=== PATIENT | male | born 1950 | race Caucasian/White ===

== ENCOUNTER 2023-10-15 13:17 | Inpatient (IN) ==
--- NOTE | 2023-10-15 13:25 | Emergency Department Note ---
Impression & Plan Cellulitis of left lower leg, Leg swelling, CKD (chronic kidney disease) ED Provider Note NAME: JAMES ROMAON AGE: 73 SEX: M : 1950 ARRIVES VIA: Walk-In INFORMANT: Patient, ED PROVIDER(S): Yonatan Regan MD CHIEF COMPLAINT: Left lower extremity swelling MEDICAL DECISION MAKING: Patient presents due to concern for left lower extremity swelling and associated cellulitis. The patient was referred possible osteomyelitis from the urgent care. The patient does not have any obvious deep wounds from this blister to the left foot. The patient does have prior history of popliteal bypass. Dopplerable pulses were obtained. The patient is warm no signs of obvious limb ischemia not cold or decrease in temperature compared to the right. Patient does have associated swelling redness and warmth noted to the left lower extremity. Patient is anticoagulated but given the patient's recent swelling and associated travel DVT ultrasound was obtained along with blood work and a screening chest x-ray. Patient was ordered IV vancomycin and Rocephin. Blood work shows a normal white count hemoglobin and platelet count. The patient's kidney function with a creat of 1.75. No priors for comparison. Potassium 3.4. LFTs unremarkable dig level low at 0.7. Given the more sensitive nature of the patient's cellulitis do believe the patient would benefit from IV antibiotics and treatment. Patient was admitted to the medicine service by Dr. Wiley. Discussion w/ other healthcare providers: Dr. Wiley [facility] medicine service Prior /Outside records reviewed: None Differential diagnosis: Cellulitis, abscess, MRSA infection, DVT, necrotizing fasciitis, dermatitis, drug eruption, allergic reaction, as well as other pathologies were considered. Diagnostics, as interpreted by me: ECG: A-fib, rate of 85, wide QRS, right bundle branch block pattern, normal axis no ST elevations. Cardiac monitoring: An order was placed for continuous cardiac monitoring. The monitor shows a rate of 85 with irregularly irregular rhythm. Patient was placed on pulse oximetry Medical decision rules: None Imaging studies: I informally interpreted the patient's chest x-ray with cardiomegaly no obvious pneumonia with formal report to follow. HPI: Patient presents as a referral for [facility] due to concern for left lower extremity swelling and associated redness. The patient reports that he did have some left toe pain that he noticed over the weekend and was participating in a fishing tournament. The patient noticed a blister after taking off his shoe she has since ruptured. The patient reportedly was referred here for further evaluation and treatment possible osteomyelitis. Patient denies any chest pains or shortness of breath. Patient does have a history of A-fib is on Eliquis and does have a prior history of bilateral popliteal bypass but did have 2 bypasses completed of the left lower extremity. 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 Patient has noticed some increasing swelling and redness to the left lower extremity. Patient states that he has woken up perspiring last night as well as the night over the weekend. The patient is from the [facility] area but does spend time down in [place] and recently returned from [place] and is staying with a friend locally in [place]. PAST MEDICAL HISTORY: A-fib, hypertension PAST SURGICAL HISTORY: Left lower extremity popliteal bypass x 2, right lower extremity popliteal bypass x 1, left inguinal hernia surgery SOCIAL HISTORY: Speaks Maldivian. Primarily resides in [place]. HOME MEDICATIONS: See Below ALLERGIES: See Below VITALS: See Below PHYSICAL EXAMINATION: GENERAL: NAD, non-toxic. EYE EXAM: Normal conjunctiva. PERRL, no anisocoria and EOM's grossly intact w/o pain. OROPHARYNX: Moist mucus membranes, grossly normal dentition. NECK: Trachea midline, no stridor. LUNGS: Clear to auscultation. Normal chest wall mechanics. HEART: Irregularly irregular, no MRG. ABDOMEN: Abdomen soft, non-tender, no masses, no rebound or guarding. BACK: No CVA TTP. SKIN: No rashes and no bruising. UPPER EXTREMITIES: Upper extremities are grossly normal. LOWER EXTREMITIES: Left lower extremity swelling with associated erythema overlying venous stasis changes with the erythema noted just distal to the left knee to the proximal ankle, no obvious joint swelling to the knee or ankle, calor noted, sensate, likely prior ruptured blister of the left great toe does not obviously probe to bone. NEURO EXAM: A&O x3, cranial nerves II-XII grossly intact, normal speech, moves all 4 extremities. Past Med/Surg History Problem List Surgical History History of hernia repair Social History Smoking Status: Former smoker Smoking End Date: Stopped 36 years ago; Hx Alcohol Use: Yes Alcohol Intake Frequency: Monthly or Less Hx Substance Use: No Feels Safe at Home: Yes Results & Data (ED) Vital Signs Vital Signs - 24 hr 10/15/23 13:18 Temperature 36.5 C Temperature Source Temporal Artery Scan Pulse Rate 102 H Pulse Rhythm Regular Pulse Strength Normal Respiratory Rate 20 Respiratory Effort / Characteristics Non-Labored Spontaneous Respiratory Depth Normal Blood Pressure 129/89 Blood Pressure Mean 102 Blood Pressure Position Sitting Pulse Oximetry 96 Oxygen Delivery Method Room Air Sepsis Recent Fever Within 48 Hours No Sepsis New/Unexplained Change in Mental Status No Sepsis Action Taken by Nursing No Action Required Home Medications Current Medication List: was personally reviewed by me Laboratory Data Attestation: I reviewed the patient's lab results. 10/15/23 14:11 10/15/23 14:11 Lab Results 10/15/23 Range/Units 14:11 WBC 8.87 (4.8-10.8) K/ul RBC 5.14 (4.70-6.10) M/uL Hgb 15.1 (14.0-18.0) g/dl Hct 45.8 (42.0-52.0) % MCV 89.1 (80.0-100.0) fL MCH 29.4 (25.0-34.0) pg MCHC 33.0 (32.0-36.0) g/dL RDW Std Deviation 52.7 H (36.4-46.3) fL RDW Coeff of Magda 15.9 H (11.5-14.5) % Plt Count 166 (130-400) K/uL MPV 9.4 (9.4-12.4) fL Immature Gran % (Auto) 0.5 % Neut % (Auto) 69.5 % Lymph % (Auto) 13.2 % Harding % (Auto) 13.3 % Eos % (Auto) 2.9 % Baso % (Auto) 0.6 % Neut # (Auto) 6.17 (1.40-6.50) K/uL Lymph # (Auto) 1.17 L (1.20-3.40) K/uL Harding # (Auto) 1.18 H (0.11-0.59) K/uL Eos # (Auto) 0.26 (0.00-0.50) K/uL Baso # (Auto) 0.05 (0.00-0.20) K/uL Immature Gran # (Auto) 0.04 (0.01-0.20) K/uL Sodium 137 (136-145) mmol/L Potassium 3.4 L (3.5-5.1) mmol/L Chloride 99 (98-107) mmol/L Carbon Dioxide 32 (21-32) mmol/L Anion Gap 6 (3-11) BUN 20 (6-23) mg/dl Creatinine 1.75 H (0.6-1.4) mg/dl Est Cr Clr Drug Dosing 50.7 ml/min Est GFR ( Amer) 43.8 ml/min Est GFR (Non-Af Amer) 37.8 ml/min BUN/Creatinine Ratio 11.4 (10-20) Glucose 99 (70-99(Fasting)) mg/dl Calcium 9.1 (8.6-10.3) mg/dl Total Bilirubin 1.2 H (0.2-1.0) mg/dl AST 21 (13-39) U/L ALT 24 (7-52) U/L Alkaline Phosphatase 121 H (34-104) U/L Total Protein 7.2 (6.0-8.3) gm/dl Albumin 3.7 (3.4-5.0) gm/dl Globulin 3.5 (2.5-4.0) gm/dl Albumin/Globulin Ratio 1.1 (0.9-2) Procalcitonin 0.13 (0-0.5) ng/ml TSH 2.500 (0.300-4.500) uIu/ml Digoxin 0.7 L (0.8-2.0) ng/ml Administered Medications Vancomycin HCl 2,750 mg/ (Sodium Chloride) 555 mls @ 200 mls/hr IV NOW ONE Stop: 10/15/23 16:37 Last Admin: 10/15/23 15:36 Dose: 200 mls/hr Documented By: CHITOK Discontinued Medications Ceftriaxone Sodium (Rocephin) 2,000 mg in 50 mls @ 100 mls/hr IV NOW STA Stop: 10/15/23 14:20 Last Infusion: 10/15/23 15:17 Dose: Infused Documented By: Admin: 10/15/23 14:47 Dose: 100 mls/hr Documented By: STEWART Imaging Data Radiologist's Impression: Chest X-Ray 10/15/23 13:49 XR chest 1V portable CLINICAL HISTORY: weakness TECHNIQUE: Single frontal radiograph of the chest was obtained. Comparison: None available at the time of this dictation. FINDINGS: No lines and tubes are seen. Cardiomegaly is noted. Reticular interstitial opacities are seen. No evidence of pleural effusion or pneumothorax. IMPRESSION: No acute chest disease. Cardiomegaly is noted. ACT 112: Negative or not required by law. Electronically signed by: Ivan Bills M.D. 10/15/2023 2:49 PM Venous Doppler Study 10/15/23 14:26 LEFT LOWER EXTREMITY VENOUS DOPPLER HISTORY: Acute pain and swelling of the left lower leg swelling, redness, travel COMPARISON STUDY: None. FINDINGS: There is normal compressibility, flow, and augmentation within the left lower extremity deep venous system. Left internal jugular lymph nodes measure up to 2.5 x 1.0 x 1.8 cm with thin cortices and central fatty ernie, likely benign. Subcutaneous edema. IMPRESSION: No DVT within the left lower extremity. ACT 112: Negative or not required by law. Electronically signed by: Ganesh Mariano M.D. 10/15/2023 3:44 PM Discharge Plan Visit Data Chief Complaint: Foot Injury/Pain Stated Complaint: LT FOOT CELLULITIS ED Provider: Yonatan Regan Discharge Problem: Cellulitis of left lower leg, Leg swelling, CKD (chronic kidney disease) Forms Stand Alone Forms: [facility] Referrals Referrals: PCP,NO [Primary Care Provider] - Discharge Problem: CKD (chronic kidney disease) Qualifiers: Chronic kidney disease stage: unspecified stage Qualified Code(s): N18.9 - Chronic kidney disease, unspecified
[2023-10-15] MEDS ORDERED: VANCOMYCIN CONSULT ACTIVE PRN (13:51)
[2023-10-15 14:37] LABS: Basophils # (auto) 0.05 K/uL (0.00-0.20); Basophils % (auto) 0.6 %; Eosinophils # (auto) 0.26 K/uL (0.00-0.50); Eosinophils % (auto) 2.9 %; Hematocrit (blood only) 45.8 % (42.0-52.0); Hemoglobin 15.1 g/dl (14.0-18.0); Immature Granulocytes # (auto) 0.04 K/uL (0.01-0.20); Immature Granulocytes % (auto) 0.5 %; Lymphocytes # (auto) 1.17 K/uL (1.20-3.40); Lymphocytes % (auto) 13.2 %; Mean Corpuscular Hemoglobin 29.4 pg (25.0-34.0); Mean Corpuscular Volume 89.1 fL (80.0-100.0); Mean Platelet Volume 9.4 fL (9.4-12.4); Monocytes # (auto) 1.18 K/uL (0.11-0.59); Monocytes % (auto) 13.3 %; Neutrophils # (auto) 6.17 K/uL (1.40-6.50); Neutrophils % (auto) 69.5 %; Platelet Count 166 K/uL (130-400); RDW Coefficient of Variation 15.9 % (11.5-14.5); RDW Standard Deviation 52.7 fL (36.4-46.3); Red Blood Count 5.14 M/uL (4.70-6.10); White Blood Count 8.87 K/ul (4.8-10.8)
[2023-10-15] MEDS: cefTRIAXone SODIUM 2,000 MG/50 ML BAG IV STA (14:47)
--- NOTE | 2023-10-15 14:51 | XRay Report ---
XR chest 1V portable CLINICAL HISTORY: weakness TECHNIQUE: Single frontal radiograph of the chest was obtained. Comparison: None available at the time of this dictation. FINDINGS: No lines and tubes are seen. Cardiomegaly is noted. Reticular interstitial opacities are seen. No jordyn dence of pleural effusion or pneumothorax. IMPRESSION: No acute chest disease. Cardiomegaly is noted. ACT 112: Negative or not required by law. Electronically signed by: Ivan Bills M.D. 10/15/2023 2:49 PM
[2023-10-15 14:52] LABS: Albumin Globulin Ratio 1.1 (0.9-2); Albumin Level 3.7 gm/dl (3.4-5.0); BUN Creatinine Ratio 11.4 (10-20); Bilirubin,Total 1.2 mg/dl (0.2-1.0); Calcium 9.1 mg/dl (8.6-10.3); Creatinine Clr Calc Pharmacy 50.7 ml/min; Est GFR (African American) 43.8 ml/min; Est GFR (Non-African American) 37.8 ml/min; Globulin 3.5 gm/dl (2.5-4.0); Potassium 3.4 mmol/L (3.5-5.1); Total Protein 7.2 gm/dl (6.0-8.3)
[2023-10-15 15:07] LABS: Thyroid Stimulating Hormone 2.5 uIu/ml (0.300-4.500)
--- NOTE | 2023-10-15 15:35 | History & Physical Report ---
Date of Service October 15, 2023 Assessment & Plan (1) Cellulitis of left leg: (2) PVD (peripheral vascular disease): Plan: Patient is 73 year old male with PMH atrial fibrillation on digoxin, anticoagulated on Xarelto, PVD s/p left popliteal bypass (approximately 40 years ago) presented to ER with c/o left leg redness x 4 days. Blister noted to left great toe last week after fishing in [place] keys In ER afebrile, P: 102, R: 20, BP 129/89, 96% on room air. No leukocytosis In ER given Rocephin 2 g, vancomycin Venous Doppler negative for DVT Blood cultures Start Zosyn, daptomycin Arterial Doppler pending MRI foot to r/o osteomyelitis Podiatry consult for possible need for debridement of great toe blister region Patient requests ID consult CBC in am (3) MINDY (acute kidney injury): Plan: Possible MINDY vs CKD BUN: 20, Cr: 1.75. Unknown baseline. Patient states will bring in recent outpatient lab results tomorrow for review IVF Will hold Lasix for now Monitor renal functions (4) Atrial fibrillation: Plan: History atrial fibrillation anticoagulated on Xarelto Current atrial fibrillation rate controlled Digoxin lab: 0.7 Continue digoxin, nebivolol Will hold Xarelto in case of possible procedure (5) Hypokalemia: Plan: K: 3.4. Magnesium: 2.4 Replace potassium and monitor DVT Prophylaxis SCD for now Admit med tele Full Code as per discussion with pt Pt was seen and care coordinated with Dr Wiley. See addendum I spent a total of 75 minutes reviewing notes, outpatient records, labs, medication, coordinating, documenting and providing care for this patient excluding time spent in the performance of separately billed services. History of Present Illness Chief Complaint: Leg redness Primary Care Provider: NO PCP Patient is 73 year old male with PMH atrial fibrillation on digoxin, anticoagulated on Xarelto, PVD presented to ER with c/o left leg redness x 4 days. Patient states history popliteal bypass surgery to left leg approximately 40 years ago and has chronic discoloration of purple/brown coloration to bilateral lower legs. Patient reports recently diagnosed with neuropathy. Started with blister to left toe great toe plantar surface and medial surface 4 days ago. He was out fishing all day in [place]. He states started soaking foot in Epsom salts. He reports noting clear seeping discharge from left toe after walking past couple of days. 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 His Cardiology, dermatology and PCP are in [place] and reports just saw them in one month ago and was told labs "looked good". Patient states chills 4 days ago. Hasn't noticed fever. He reports wears compression socks regularly however he has noticed increased swelling to left lower leg and started with erythema to lower leg area. Denies history MRSA. Denies diaphoresis, N/V/D/C, CHAMORRO, dizziness, CP, SOB, orthopnea, palpitations, cough, so re throat, rhinorrhea, abdominal pain, increased paresthesias, weakness, extremity weakness, other rashes, urinary symptoms. Allergies Allergy/AdvReac Type Severity Reaction Status Date / Time No Known Allergies Allergy Verified 10/15/23 16:24 Home Medications Medication Instructions Recorded Confirmed Type digoxin 250 mcg (0.25 mg) tablet 250 mcg PO DAILY 10/15/23 10/15/23 History furosemide 40 mg tablet 40 mg PO DAILY 10/15/23 10/15/23 History multivitamin 1 tab PO DAILY 10/15/23 10/15/23 History nebivolol 10 mg tablet 10 mg PO DAILY 10/15/23 10/15/23 History pantoprazole 40 mg tablet,delayed 40 mg PO DAILY 10/15/23 10/15/23 History release rivaroxaban 20 mg tablet (Xarelto) 20 mg PO DAILY 10/15/23 10/15/23 History Past Med/Surg History Problem List (Updated 10/15/23 @ 16:34 by Jada Hodge PA-C) Hypokalemia MINDY (acute kidney injury) Cellulitis of left leg PVD (peripheral vascular disease) Atrial fibrillation Surgical History (Updated 10/15/23 @ 16:08 by Jada Hodge PA-C) History of vascular surgery history popliteal bypass LLE History of hernia repair Family History (Updated 10/15/23 @ 16:31 by Jada Hodge PA-C) Father Heart disease Stroke Social History Smoking Status: Former smoker Smoking End Date: Stopped 36 years ago; Hx Alcohol Use: Yes Alcohol Intake Frequency: Monthly or Less Hx Substance Use: No Feels Safe at Home: Yes Review of Systems Review of Systems: All systems reviewed & are unremarkable except as noted in HPI & below Physical Exam Physical Exam: PE per Dr Wiley Results & Data Results & Data Vital Signs (Past 12 Hours) Vital Signs Temp Pulse Resp BP Pulse Ox O2 Del Method 10/15/23 13:18 36.5 C 102 H 20 129/89 96 Room Air Laboratory Results Short CBC 10/15/23 Range/Units 14:11 WBC 8.87 (4.8-10.8) K/ul Hgb 15.1 (14.0-18.0) g/dl Hct 45.8 (42.0-52.0) % Plt Count 166 (130-400) K/uL BMP 10/15/23 14:11 Sodium 137 Potassium 3.4 L Chloride 99 Carbon Dioxide 32 BUN 20 Creatinine 1.75 H Glucose 99 Calcium 9.1 Liver Function 10/15/23 Range/Units 14:11 Total Bilirubin 1.2 H (0.2-1.0) mg/dl AST 21 (13-39) U/L ALT 24 (7-52) U/L Alkaline Phosphatase 121 H (34-104) U/L Albumin 3.7 (3.4-5.0) gm/dl Diagnostic Findings Chest X-Ray 10/15/23 13:49 XR chest 1V portable CLINICAL HISTORY: weakness TECHNIQUE: Single frontal radiograph of the chest was obtained. Comparison: None available at the time of this dictation. FINDINGS: No lines and tubes are seen. Cardiomegaly is noted. Reticular interstitial opacities are seen. No evidence of pleural effusion or pneumothorax. IMPRESSION: No acute chest disease. Cardiomegaly is noted. ACT 112: Negative or not required by law. Electronically signed by: Ivan Bills M.D. 10/15/2023 2:49 PM Venous Doppler Study 10/15/23 14:26 LEFT LOWER EXTREMITY VENOUS DOPPLER HISTORY: Acute pain and swelling of the left lower leg swelling, redness, travel COMPARISON STUDY: None. FINDINGS: There is normal compressibility, flow, and augmentation within the left lower extremity deep venous system. Left internal jugular lymph nodes measure up to 2.5 x 1.0 x 1.8 cm with thin cortices and central fatty ernie, likely benign. Subcutaneous edema. IMPRESSION: No DVT within the left lower extremity. ACT 112: Negative or not required by law. Electronically signed by: Ganesh Mariano M.D. 10/15/2023 3:44 PM Supervising Physician Co-Signing Physician Notes Patient is a 73-year-old male with past medical history of A-fib on a nticoagulation, history of popliteal bypass surgery on the left leg 40 years ago presented with progressive redness on the left leg. Patient noticed a blister on the great toe of his left foot which burst; he subsequently developed redness gradually progressing below his knee. He denies fever or chills; no previous history of lower extremity wounds. On physical examination; Constitutional: Alert oriented x 3; not in distress. Respiratory: normal respiratory effort, lungs clear to auscultation, no wheeze, rales, rhonchi. Normal insp/exp effort, no accessory muscle use Cardiovascular: RRR, no murmur, no edema Vessels: no JVD or carotid bruit Chest: normal inspection of chest Abdomen: normal bowel sounds, soft, nontender, no hepatosplenomegaly Musculoskeletal: Great toe on left foot has a skin breakage with minimal serous discharge. Redness tracking up to the leg below his knee. No effusion in the ankle or at knee. Dorsalis pedis palpable Neurologic: PERRL, EOMI, accommodation nl, no face palsy, no dysarthria CN's II- XI intact bilaterally and moves all extremities Psychiatric: A+Ox3, euthymic affect Assessment/plan Left leg cellulitis Left great toe wound IV daptomycin, Zosyn MRI foot Arterial Doppler Podiatry evaluation for debridement Possible MINDY Creatinine of 1.78; baseline unknown. Patient will bring his recent lab work to the hospital tomorrow IV fluids Avoid nephrotoxic agent Hold Lasix A-fib-will hold Xarelto; continue nebivolol, digoxin I have reviewed the advanced practitioner's documentation, and I agree with, and take responsibility for the plan of care I spent a total of 35 minutes coordinating, documenting, and providing care for this patient excluding time spent in the performance of separately billed services. All of the aforementioned completed while collaborating with the assigned advanced practitioner for a full treatment plan
[2023-10-15] MEDS: VANCOMYCIN HCL 2,750 MG in SODIUM CHLORIDE 0.9% 500 ML IV ONE (15:36)
--- NOTE | 2023-10-15 15:47 | Ultrasound Report ---
LEFT LOWER EXTREMITY VENOUS DOPPLER HISTORY: Acute pain and swelling of the left lower leg swelling, redness, travel COMPARISON STUDY: None. FINDINGS: There is normal compressibility, flow, and augmentation within the left lower extremity alex p venous system. Left internal jugular lymph nodes measure up to 2.5 x 1.0 x 1.8 cm with thin cortice s and central fatty ernie, likely benign. Subcutaneous edema. IMPRESSION: No DVT within the left lower extremity. ACT 112: Negative or not required by law. Electronically signed by: Ganesh Mariano M.D. 10/15/2023 3:44 PM
[2023-10-15] MEDS ORDERED: Patient's ALLERGY Info needs ENTERED STA (16:02)
[2023-10-15 16:17] LABS: Magnesium 2.4 mg/dl (1.7-2.4)
[2023-10-15] MEDS: POTASSIUM CHLORIDE CRTAB 20 MEQ TABCR PO ONE (17:35)
[2023-10-15] MEDS: SODIUM CHLORIDE 0.9% 1,000 ML IV SCH (17:35)
[2023-10-15] MEDS ORDERED: ONDANSETRON INJ 2 MG/ML 2 ML VIAL IV PRN (17:48)
[2023-10-15] MEDS ORDERED: POLYETHYLENE (MIRALAX) 17 GM PACK PO PRN (17:48)
--- NOTE | 2023-10-15 18:13 | Ultrasound Report ---
US arterial duplex left lower extremity CLINICAL HISTORY: History of peripheral vascular disease. Left lower extremity pain. COMPARISON STUDY: None. FINDINGS: Normal velocities and biphasic to triphasic waveforms seen within the left common femoral a nd proximal superficial femoral arteries. Monophasic low velocity waveforms seen within the mid left superficial femoral artery. The distal left superficial femoral artery, agdaagux popliteal artery, rigoberto rowan artery, and proximal to mid posterior tibial arteries are occluded. Monophasic low velocity wave forms seen within the left anterior tibial artery, distal posterior tibial artery, and dorsalis pedis artery. There is a bypass graft traversing the popliteal artery which is also occluded. There is als o a patent collateral vessel which feeds into the distal posterior tibial artery. IMPRESSION: 1. The distal left superficial femoral artery, agdaagux popliteal artery, peroneal artery, and proximal to mid posterior tibial arteries are occluded. 2. There is also a bypass graft traversing the left popliteal artery which is also occluded. ACT 112: Negative or not required by law. Electronically signed by: Navdeep Scott M.D. 10/15/2023 6:11 PM
[2023-10-15] MEDS: DAPTOmycin 375 MG in SYRINGE 0 ML IV SCH (18:24)
--- NOTE | 2023-10-15 20:21 | Electrocardiogram Report ---
Test Reason : Blood Pressure : / mmHG Vent. Rate : 085 BPM Atrial Rate : 000 BPM P-R Int : 000 ms QRS Dur : 178 ms QT Int : 446 ms P-R-T Axes : 000 005 -14 degrees QTc Int : 530 ms Atrial fibrillation with premature ventricular or aberrantly conducted complexes Right bundle branch block Abnormal ECG No previous ECGs available Confirmed by Jono Banegas ([id number]) on 10/15/2023 8:21:26 PM Referred By: REFERRED SELF Confirmed By:Jono Banegas
[2023-10-15] MEDS: PIPER/TAZO 4.5g in D5W MINI-B 100 ML IV ONE (20:55)
[2023-10-15] MEDS: ACETAMINOPHEN 325 MG TAB PO PRN (21:06)
--- NOTE | 2023-10-16 00:24 | Magnetic Resonance Report ---
Exam(s): MRI LEFT FOOT Without Contrast EXAM: MR Left Lower Extremity Without Intravenous Contrast, Foot CLINICAL HISTORY: Reason for exam: R/O osteomyelitis. TECHNIQUE: Multiplanar magnetic resonance images of the left foot without intravenous contrast. COMPARISON: No relevant prior studies available. FINDINGS: There is no evidence of acute fracture or dislocation. There are mild, age-related polyarticular degenerative changes, most conspicuous at the first MTP joint. A bipartite medial sesamoid at the first MTP joint is incidentally noted. Plantar plates appear intact. There is trace intermetatarsal bursitis in the third intermetatarsal space. There are no significant joint effusions. Visualized tendons appear intact. Intrinsic muscles of the foot appear normal. There is marked subcutaneous edema and swelling about the ankle and along the dorsum of the foot. There is a partially imaged subchondral cyst at the lateral talar dome, likely owing to overlying chondral loss. There is STIR hyperintense marrow edema within the terminal tuft of the first distal phalanx. T1-weighted images demonstrate a linear band of hypointensity (series 10, image 15; series 7, image 10). There is no confluent T1 marrow signal hypointensity in this location. No compelling evidence of osteomyelitis is identified within the foot. IMPRESSION: 1. Bone marrow edema in the terminal tuft of the first distal phalanx. Linear T1 hypointense band opacity in this region. Findings raise the possibility of a nondisplaced fracture. Correlate for history of trauma. Alternatively, consider reactive marrow edema for this appearance. There is no compelling evidence of acute osteomyelitis. 2. Diffuse subcutaneous edema and/or cellulitis. Electronically signed by: Sydnie Pederson M.D. 10/16/23 00:23 AM
[2023-10-16] MEDS: PIPERACILLIN/TAZOBACTAM 4.5 GM in DEXTROSE 5% MINI-B 100 ML IV SCH (01:55)
[2023-10-16 06:42] LABS: Hematocrit (blood only) 44.6 % (42.0-52.0); Hemoglobin 14.3 g/dl (14.0-18.0); Mean Corpuscular Hemoglobin 29.7 pg (25.0-34.0); Mean Corpuscular Hgb Conc 32.1 g/dL (32.0-36.0); Mean Corpuscular Volume 92.5 fL (80.0-100.0); Mean Platelet Volume 8.9 fL (9.4-12.4); Platelet Count 147 K/uL (130-400); RDW Standard Deviation 54.9 fL (36.4-46.3); Red Blood Count 4.82 M/uL (4.70-6.10); White Blood Count 7.84 K/ul (4.8-10.8)
[2023-10-16 07:01] LABS: Albumin Globulin Ratio 1.1 (0.9-2); Albumin Level 3.2 gm/dl (3.4-5.0); BUN Creatinine Ratio 10.8 (10-20); C Reactive Protein 4.4 mg/dl (0-0.5); Calcium 8.4 mg/dl (8.6-10.3); Creatinine Clr Calc Pharmacy 48.8 ml/min; Est GFR (Non-African American) 35.3 ml/min; Globulin 2.9 gm/dl (2.5-4.0); Potassium 3.3 mmol/L (3.5-5.1); Total Protein 6.1 gm/dl (6.0-8.3)
[2023-10-16] MEDS: MULTIVITAMIN TAB PO SCH (08:36)
[2023-10-16] MEDS: PANTOprazole 40 MG TAB PO SCH (08:36)
[2023-10-16] MEDS: METOPROLOL TARTRATE 50 MG TAB PO SCH (08:36)
[2023-10-16] MEDS: SODIUM CHLORIDE 0.9% 1,000 ML IV ONE (09:26)
[2023-10-16] MEDS: POTASSIUM CHLORIDE CRTAB 20 MEQ TABCR PO ONE (09:26)
[2023-10-16 10:06] LABS: iSTAT Creatinine 0.6 mg/dl (0.6-1.3); iSTAT Hemoglobin 7.1 g/dl (14.0-18.0); iSTAT Ionized Calcium 1.17 mmol/l (1.12-1.32)
--- NOTE | 2023-10-16 10:53 | Consultation ---
Date of Consultation October 16, 2023 Assessment & Plan (1) Peripheral arterial disease with history of revascularization: Pt with remote hx of LLE vein bypasses x2, arterial US demonstrating single bypass which is occluded. Appears to be well collateralized, as indicated by lack of claudication or rest pain. With a hx of 2 bypasses already, options for revascularization will be very limited. Pt with GFR of 34, so there is concern regarding contrast for angiography. Would treat this without vascular interv ention unless limb is threatened. L great toe with marked infection, recommend abx and ortho/podiatry proceed with any necessary procedures. Discussed with RN, placed aquacel, 4x4, and kerlix for dressing to be changed daily until eval by ortho/podiatry. History of Present Illness Reason for Consultation: PAD, LLE toe wound Attending Physician: Froylan Palomares MD History of Present Illness 73 yo m with hx of CAD, A fib, CKD, PAD s/p LLE fem-distal saphenous vein bypass x2, seen in consultation today for PAD and LLE great toe wound. Pt states he had L calf claudication and leg numbness and underwent LLE popliteal artery bypass, which subsequently occluded requiring a second vein bypass with RLE saphenous vein harvest. This occurred about 40 yrs ago and has never had any other peripheral arterial work done. Unsure when his bypass was last eval with US, believes it was 3-4yrs ago. 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 At no point has he noted any return of his L calf claudication. Denies rest pain as well. Does admit chronic skin discoloration and edema of lower leg. States he first noted some L great toe pain at the end of a recent fishing trip, then noted some redness of the toe. Took some leftover abx at home, but sx worsened. Began to notice drainage on his socks and flip flops, and increased edema, so came to [facility]. Primary residence in [place], but stays locally with his girlfriend. Denies fever, chest pain, SOB, abd pain, N/V, other complaints. LLE arterial US demonstrates occluded bypass with reconstitution and monophasic flow distally. Allergies Allergy/AdvReac Type Severity Reaction Status Date / Time No Known Allergies Allergy Verified 10/15/23 16:24 Home Medications Medication Instructions Recorded Confirmed Type digoxin 250 mcg (0.25 mg) tablet 250 mcg PO DAILY 10/15/23 10/15/23 History furosemide 40 mg tablet 40 mg PO DAILY 10/15/23 10/15/23 History multivitamin 1 tab PO DAILY 10/15/23 10/15/23 History nebivolol 10 mg tablet 10 mg PO DAILY 10/15/23 10/15/23 History pantoprazole 40 mg tablet,delayed 40 mg PO DAILY 10/15/23 10/15/23 History release rivaroxaban 20 mg tablet (Xarelto) 20 mg PO DAILY 10/15/23 10/15/23 History Patient History Surgical History History of vascular surgery history popliteal bypass LLE History of hernia repair Family History Father Heart disease Stroke Social History Smoking Status: Former smoker Smoking End Date: Stopped 36 years ago; Hx Alcohol Use: Yes Alcohol Intake Frequency: Monthly or Less Hx Substance Use: No Preferred Language: Amharic Communication Ability: Effective Insulator Apprentice Required: No Beliefs That Will Affect Care: Mormonism Mormonism Beliefs: Orthodox Current Living Situation: Significant Other Current Living Situation Comment: lives with significant other "Vanda" Other Information That Helps Us Care for You: No Feels Safe at Home: Yes Safety Concerns: Feels Safe At This Time Assistive Devices: Glasses and Hospital Bed Review of Systems Review of Systems: All systems reviewed & are unremarkable except as noted in HPI & below Physical Exam Constitutional: WD/WN, vitals as above cooperative and comfortable; not in distress Neck: trachea midline Respiratory: normal respiratory effort, lungs clear to auscultation Auscultation: + diminished lung sounds Cardiovascular: Rate/Rhythm: + irregularly irregular Vessels: posterior tibial pulses present (doppler BLE), dorsalis pedis pulses present (doppler RLE, faint doppler LLE) and radial pulses present; + abnormal peripheral pulses Extremities: normal capillary refill and + edema (+4 LLE, +3 RLE. skin changes of chronic venous insufficiency) Gastrointestinal (Abdomen): Inspection/Auscultation: abdomen normal to inspection and normal bowel sounds Percussion/Palpation: abdomen soft; abdomen nontender Musculoskeletal: no cyanosis or clubbing, extremities motor strength 5/5 Skin: + ulcer (L great toe lateral, with purul ent drainage and odor.) L great toe purulent drainage, erythema, warmth, odor. Neurologic: moves all extremities and awake; no focal motor deficits and not confused Psychiatric: A+Ox3, euthymic affect Results & Data Vital Signs (Past 12 Hours) Vital Signs Temp Pulse Pulse Resp BP Pulse Ox O2 Del Method 10/16/23 07:52 36.7 C 70 16 114/67 95 Room Air 10/16/23 07:39 Room Air 10/16/23 06:05 72 10/16/23 04:45 36.1 C L 69 18 106/60 97 Room Air 10/15/23 23:45 36.5 C 77 18 104/65 95 Room Air
--- NOTE | 2023-10-16 12:02 | Orthopedic Consultation ---
Date of Service October 16, 2023 Assessment & Plan (1) Infection of great toe: He was seen and examined by Dr. Jordan today and the toe was debrided at the bedside. We recommend continue nonoperative management for this with wound care, soaking the toe twice a day and orthotics consult for off loading shoe. He sh ould soak this toe twice daily in 1/3 betadine, 1/3 hydrogen peroxide, and 1/3 normal sterile saline. History of Present Illness Reason for Consultation: . Requesting Physician: . Attending Physician: Froylan Palomares MD . 73 year old patient admitted last night for cellulitis/infection of his left great toe. He says he was fishing on a boat for 4 days in some pretty [place] in [place]. He is unaware of any injury but noticed a blister on the great toe 4 days ago, which eventually opened and drained. 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 He has a h/o peripheral vascular disease, bypass grafting/stent 30-40 years ago. Vascular service has been consulted. Allergies Allergy/AdvReac Type Severity Reaction Status Date / Time No Known Allergies Allergy Verified 10/15/23 16:24 Home Medications Medication Instructions Recorded Confirmed Type digoxin 250 mcg (0.25 mg) tablet 250 mcg PO DAILY 10/15/23 10/15/23 History furosemide 40 mg tablet 40 mg PO DAILY 10/15/23 10/15/23 History multivitamin 1 tab PO DAILY 10/15/23 10/15/23 History nebivolol 10 mg tablet 10 mg PO DAILY 10/15/23 10/15/23 History pantoprazole 40 mg tablet,delayed 40 mg PO DAILY 10/15/23 10/15/23 History release rivaroxaban 20 mg tablet (Xarelto) 20 mg PO DAILY 10/15/23 10/15/23 History Past Med/Surg History Problem List (Updated 10/16/23 @ 12:08 by Shaheed Awan PA-C) Infection of great toe Peripheral arterial disease with history of revascularization Hypokalemia MINDY (acute kidney injury) Cellulitis of left leg PVD (peripheral vascular disease) Atrial fibrillation Surgical History History of vascular surgery history popliteal bypass LLE History of hernia repair Family History Father Heart disease Stroke Social History Smoking Status: Former smoker Smoking End Date: Stopped 36 years ago; Hx Alcohol Use: Yes Alcohol Intake Frequency: Monthly or Less Hx Substance Use: No Preferred Language: Paraguayan Communication Ability: Effective Healthcare Marketer Required: No Beliefs That Will Affect Care: Methodist Methodist Beliefs: Pentecostal Current Living Situation: Significant Other Current Living Situation Comment: lives with significant other "Vanda" Other Information That Helps Us Care for You: No Feels Safe at Home: Yes Safety Concerns: Feels Safe At This Time Assistive Devices: CPAP Review of Systems All systems reviewed & are unremarkable except as noted in HPI & below. Physical Exam .alert and oriented. NAD. Afebrile. Left great toe: Necrotic appearing skin distally, with some erythema of the toe more proximally. There is a wound laterally. Wound care nurse was also seeing him at this time and the necrotic skin was debrided. There is healthy appearing tissue below the necrotic skin. No purulent drainage. He has diminished sensation as he really did not have pain during debridement. Results & Data Results & Data Laboratory Results . Diagnostic Findings . MRI shows some bone edema of the distal phalanx of the great toe on the STIR images, some arthritic change of the IP and MTP joints, no definite osteomyelitis. PG Care Time/CCT Total # of Minutes Spent Total Time Spent with Patient: Total time spent is greater than 50% in coordination of care (as documented) at patient's floor/unit and/or counseling patient: Coding Level of Care Code 22808 IN/OBS CONSULT LVL 3,45M Diagnoses Infection of great toe L08.9
[2023-10-16] MEDS: DIGOXIN 0.25 MG TAB PO SCH (16:34)
--- NOTE | 2023-10-16 17:28 | Hospitalist Progress Note ---
Date of Service October 16, 2023 Assessment & Plan (1) Cellulitis of left leg: (2) PVD (peripheral vascular disease): Plan: Patient is 73 year old male with PMH atrial fibrillation on digoxin, anticoagulated on Xarelto, PVD s/p left popliteal bypass (approximately 40 years ago) presented to ER with c/o left leg redness x 4 days. Blister noted to left great toe last week after fishing in [place] Left leg cellulitis Left great toe infection S/P bedside debridement --Foot MRI:Bone marrow edema in the terminal tuft of the first distal phalanx. Linear T1 hypointense band opacity in this region. Findings raise the possibility of a nondisplaced fracture. Correlate for history of trauma. Alternatively, consider reactive marrow edema for this appearance.There is no compelling evidence of acute osteomyelitis. Diffuse subcutaneous edema and/or cellulitis. --Venous Doppler:No DVT within the left lower extremity. -- Blood, wound cultures pending -- Continue Zosyn, daptomycin Appreciate orthopedics input Peripheral vascular disease H/O LLE vein bypasses x2 --Arterial Doppler:The distal left superficial femoral artery, [place] popliteal artery, peroneal artery, and proximal to mid posterior tibial arteries are occl uded. There is also a bypass graft traversing the left popliteal artery which is also occluded. Vascular surgery consulted Check lipid panel On chronic anticoagulation with Xarelto (3) MINDY (acute kidney injury): Plan: Possible MINDY vs CKD Unknown baseline renal function received gentle IV fluids Will hold Lasix for now Monitor renal function, volume status (4) Atrial fibrillation: Plan: Continue digoxin, nebivolol continue Xarelto (5) Hypokalemia: Plan: Replete electrolytes as needed Monitor DVT Px Xarelto Code Status Full Code Admission and Anticipated Discharge Date Admission Date: October 15, 2023 Subjective Patient is seen and examined at bedside States having left foot pain intermittently Leg erythema slowly improving Offers no other complaints Denies any chest pain, dizziness, nausea, vomiting, abdominal pain Reported some dyspnea to RN this afternoon Review of Systems Review of Systems: All systems reviewed & are unremarkable except as noted in Subjective Physical Exam Physical Exam: Physical Exam: Vitals signs as noted above General Appearance: Obese, no apparent distress Head: normocephalic, Atraumatic Eyes: normal inspection, EOMI Neck: supple, Trachea midline Respiratory/Chest: Decreased breath sounds, CTA, No accessory muscle use Cardiovascular: Irregularly irregular, No murmur Abdomen/GI:Soft, Non tender, Bowel sounds present Extremities/Musculoskeletal:normal inspection, + edema, chronic venous stasis changes, left great toe ulcer, left lower extremity erythema improving Neurologic/Psych:AAOX3, grossly no focal neurological deficits Skin: normal color, warm Results & Data Results & Data Vital Signs (Past 12 Hours) Vital Signs Temp Pulse Pulse Resp BP Pulse Ox O2 Del Method 10/16/23 16:34 81 10/16/23 16:04 91 H 10/16/23 16:02 36.4 C L 76 16 133/85 97 Room Air 10/16/23 13:20 88 10/16/23 11:48 36.5 C 77 18 147/89 H 98 Room Air 10/16/23 07:52 36.7 C 70 16 114/67 95 Room Air 10/16/23 07:39 Room Air 10/16/23 06:05 72 Laboratory Results Short CBC 10/16/23 Range/Units 06:17 WBC 7.84 (4.8-10.8) K/ul Hgb 14.3 (14.0-18.0) g/dl Hct 44.6 (42.0-52.0) % Plt Count 147 (130-400) K/uL BMP 10/16/23 06:17 Sodium 139 Potassium 3.3 L Chloride 102 Carbon Dioxide 32 BUN 20 Creatinine 1.85 H Glucose 117 H Calcium 8.4 L Liver Function 10/16/23 Range/Units 06:17 Total Bilirubin 1.0 (0.2-1.0) mg/dl AST 17 (13-39) U/L ALT 19 (7-52) U/L Alkaline Phosphatase 104 (34-104) U/L Albumin 3.2 L (3.4-5.0) gm/dl
--- NOTE | 2023-10-16 17:34 | XRay Report ---
XR chest 1V portable HISTORY: 73 years-old Male Dyspnea acute shortness of breath COMPARISON: 10/15/2023 TECHNIQUE: AP view of the chest FINDINGS: Cardiac silhouette is enlarged. No pneumothorax or pleural effusion. Extensive bilateral reticular in terstitial opacities congestion. Bones appear grossly intact IMPRESSION: 1. Cardiomegaly with pulmonary vascular congestion. 2. Reticular interstitial opacities redemonstrated suggestive of chronic interstitial lung disease. ACT 112: Negative or not required by law. The above report was generated using voice recognition software. It may contain grammatical, syntax o r spelling errors. Electronically signed by: Ganesh Mariano M.D. 10/16/2023 5:33 PM
[2023-10-16] MEDS: FUROSEMIDE INJ 20 MG/2 ML VIAL IV ONE (17:43)
[2023-10-16] MEDS: COLLAGENASE OINT 30 GM TUBE EXT SCH (18:55)
[2023-10-16] MEDS: RIVAROXABAN 15 MG TAB PO SCH (19:18)
[2023-10-16] MEDS: CALCIUM CARBONATE 500 MG CHEWABLE TAB PO STA (20:51)
--- NOTE | 2023-10-16 22:24 | Podiatry Consultation ---
Date of Consultation October 16, 2023 Assessment & Plan (1) Infection of great toe: (2) Peripheral arterial disease with history of revascularization: (3) Cellulitis of left leg: (4) Chronic ulcer of left foot with fat layer exposed: Plan patient was examined and evaluated. We discussed etiology and treatment of this left hallux ulceration. It would benefit from further debridement, though has performed an adequate bedside debridement so far. Given his history of vascular disease, he would benefit from a new vascular consult on this hospitalization. Further, in the short-term, he would benefit from Santyl enzymatic debridement until more definitive surgical debridement could be performed. If he is as avascular as his history suggests, sharp debridement should be further avoided as well. We will continue to follow up with him though no surgical intervention is planned at this time. He should continue to improve with local wound care, Santyl, and infection management. Thank you for the consult, will look forward to helping with this patient while hospitalized. History of Present Illness Reason for Consultation: Left hallux wound Attending Physician: Froylan Palomares MD History of Present Illness patient presents to the hospital with worsening left hallux blistering. He states that he developed this while on a boat vacation recently. He noticed this blister develop and has not improved. He states the pain was not very significant, however, he believed it was infected so he presented to the hospital for care. He does have some pain to the toe. He has seen orthopedics earlier today who did debride the wound and overlying blister. He still has pain to it and wanted to have it assessed as definitely as possible while inpatient. He does have a severe history of peripheral arterial disease needing bypass. Allergies Allergy/AdvReac Type Severity Reaction Status Date / Time No Known Allergies Allergy Verified 10/15/23 16:24 Home Medications Medication Instructions Recorded Confirmed Type digoxin 250 mcg (0.25 mg) tablet 250 mcg PO DAILY 10/15/23 10/15/23 History furosemide 40 mg tablet 40 mg PO DAILY 10/15/23 10/15/23 History multivitamin 1 tab PO DAILY 10/15/23 10/15/23 History nebivolol 10 mg tablet 10 mg PO DAILY 10/15/23 10/15/23 History pantoprazole 40 mg tablet,delayed 40 mg PO DAILY 10/15/23 10/15/23 History release rivaroxaban 20 mg tablet (Xarelto) 20 mg PO DAILY 10/15/23 10/15/23 History Patient History Surgical History History of vascular surgery history popliteal bypass LLE History of hernia repair Family History Father Heart disease Stroke Social History Smoking Status: Former smoker Hx Alcohol Use: Yes Alcohol Intake Frequency: Monthly or Less Hx Substance Use: No Preferred Language: Japanese Communication Ability: Effective Propulsion Systems Engineer Required: No Beliefs That Will Affect Care: Taoism Taoism Beliefs: Sabianist Current Living Situation: Significant Other Current Living Situation Comment: lives with significant other "Vanda" Feels Safe at Home: Yes Assistive Devices: CPAP Review of Systems Review of Systems: All systems reviewed & are unremarkable except as noted in HPI & below Constitutional: no fever, no chills and no fatigue Eyes: no problem reported Ear, Nose, Mouth, Throat: no problem reported Respiratory: no problem reported Cardiovascular: + edema; no problem reported Gastrointestinal: no nausea, no vomiting and no problem reported Musculoskeletal: no problem reported Integumentary: + skin ulcer, + wounds and + erythema Neurologic: + loss of sensation, + numbness and + pa resthesia; no generalized weakness Psychiatric: no problem reported Physical Exam Physical Exam: lower extremity focused exam: DP/PT pulses 0/4 bilaterally. CFT is brisk to the digits. There is serous fluid drainage to the tip of the left hallux with no purulence noted. Minimal ascending erythema is appreciated, likely improved since the orthopedic consult. The nail is largely intact though dystrophic in nature. Advanced trophic changes are appreciated to the bilateral lower extremities, consistent with his arterial insufficiency. No deep probing of the wound is noted. No pain on palpation or light debridement of the wound bed is appreciated. Constitutional: WD/WN, vitals as above + ill appearing and + obese Eyes: PERRL, conjunctivae normal, anicteric sclerae ENMT: external ear and nose normal, oropharynx normal Neck: trachea midline, no thyromegaly normal visual inspection Respiratory: normal respiratory effort; no respiratory distress Cardiovascular: Rate/Rhythm: regular rate and regular rhythm Chest (Breasts): Chest: normal inspection of chest Gastrointestinal (Abdomen): Inspection/Auscultation: abdomen normal to inspection Percussion/Palpation: + abdomen tender and abdomen soft Musculoskeletal: no cyanosis or clubbing, extremities motor strength 5/5 Head/Neck/Chest: normocephalic and head atraumatic Extremities: extremities normal to inspection Ankle: + skin erythema Skin: + lesion, + ulcer, + skin atrophy, + dry skin and + nails dystrophic Neurologic: awake; + abnormal touch/pain/proprioception, + abnormal sensation to monofilament and no focal motor deficits Psychiatric: A+Ox3, euthymic affect Results & Data Vital Signs (Past 12 Hours) Vital Signs Temp Pulse Pulse Resp BP BP Pulse Ox 10/16/23 19:38 36.5 C 83 16 119/76 95 10/16/23 16:34 81 10/16/23 16:04 91 H 10/16/23 16:02 36.4 C L 76 16 133/85 97 10/16/23 13:20 88 10/16/23 11:48 36.5 C 77 18 147/89 H 98 O2 Del Method 10/16/23 19:38 Room Air 10/16/23 16:34 10/16/23 16:04 10/16/23 16:02 Room Air 10/16/23 13:20 10/16/23 11:48 Room Air Diagnostic Findings MRI imaging reviewed reveals increased signal intensity to the distal phalanx of the hallux, consistent with possible osteomyelitis. This does not correlate clinically as this superficial ulceration does not probe the bone and the duration of the ulcer would not suggest bone infection. This could be early osteitis or inflammatory changes associated with the blistering or trauma. It also could be artifact, given the motion of the foot visualized and other MR protocols within the series.
[2023-10-17 07:43] LABS: Hematocrit (blood only) 45.1 % (42.0-52.0); Hemoglobin 14.3 g/dl (14.0-18.0); Mean Corpuscular Hemoglobin 29.3 pg (25.0-34.0); Mean Corpuscular Hgb Conc 31.7 g/dL (32.0-36.0); Mean Corpuscular Volume 92.4 fL (80.0-100.0); Mean Platelet Volume 9.3 fL (9.4-12.4); Platelet Count 169 K/uL (130-400); RDW Standard Deviation 54.5 fL (36.4-46.3); Red Blood Count 4.88 M/uL (4.70-6.10)
[2023-10-17 08:11] LABS: Anion Gap 5 (3-11); BUN Creatinine Ratio 10.1 (10-20); Blood Urea Nitrogen 19 mg/dl (6-23); Calcium 8.4 mg/dl (8.6-10.3); Carbon Dioxide 31 mmol/L (21-32); Chloride 104 mmol/L (98-107); Chol HDL Ratio 4.2 (0-5); Cholesterol 121 mg/dl (0-200); Creatinine Clr Calc Pharmacy 47.7 ml/min; Est GFR (African American) 40.2 ml/min; Est GFR (Non-African American) 34.7 ml/min; Glucose 101 mg/dl (70-99(Fasting)); HDL Cholesterol 29 mg/dl; LDL Cholesterol Calculated 77 mg/dl; Magnesium 2.4 mg/dl (1.7-2.4); Sodium 140 mmol/L (136-145); Triglycerides 77 mg/dl (0-150); VLDL Cholesterol 15 mg/dl (0-30)
[2023-10-17] MEDS: FUROSEMIDE 40 MG TAB PO SCH (08:21)
--- NOTE | 2023-10-17 13:23 | Infectious Disease Consult ---
Date of Service October 17, 2023 Telehealth Information I performed this visit using a real-time telehealth connection between my location and the patients location ([facility]). After connecting through interactive tele-video, patient was identified by name and date of and/or wristband check.Patient (or authorized healthcare service support representative) was informed that this was a telemedicine visit and it was being conducted confidentially over secure lines. My office door was closed and no one else was present in the room with me.Patient (or authorized healthcare service support representative) provided consent to proceed with the visit, expressed an understanding of privacy and security of the telemedicine visit, and gave permission to have a hospital service support representative in the room in order to assist with the visit and to conduct portions of the visit, as needed. I informed the patient (or authorized healthcare service support representative) that I reviewed their record and presented the opportunity for them to ask any questions regarding the visit today. The patient agreed to participate. Assessment & Plan (1) Infection of great toe: (2) Cellulitis of left leg: (3) Chronic ulcer of left foot with fat layer exposed: Plan Assessment: Pt is 73 year old male with PMHx of atrial fibrillation on digoxin, anticoagulated on Xarelto, PVD who present to [facility] on 10/15/2023 with c/o left leg redness x 4 days. Per notes and chart review, pt has history popliteal bypass surgery to left leg approximately 40 years ago and has chronic discoloration of purple/brown coloration to bilateral lower legs. Pt had a blister to left toe great toe plantar surface and medial surface approximately 4 days prior to admission. Pt was out fishing all day in [place]. Pt states started soaking foot in [place]. At [facility], all labs and vital signs normal. Pt started on Zosyn and Daptomycin IV. Plan: - Recommend stopping Zosyn IV and continuing with Daptomycin IV alone. Unclear if superficial swab with Staph species is helpful but will target the most likely culprit which is a GP organism. If patient continues to improve off of Zosyn, okay to switch to Linezolid 600 mg PO BID to complete 14 days of total antibiotics. - we will not actively monitor pt, for additional recommendation please reach out to ID physician via tiger text or call. Thank you for you consult. History of Present Illness History of Present Illness Reason for Consult: LLE cellulitis Pt is 73 year old male with PMHx of atrial fibrillation on digoxin, anticoagulated on Xarelto, PVD who present to [facility] on 10/15/2023 with c/o left leg redness x 4 days. Per notes and chart review, pt has history popliteal bypass surgery to left leg approximately 40 years ago and has chronic discoloration of purple/brown coloration to bilateral lower legs. Pt had a blister to left toe great toe plantar surface and medial surface approximately 4 days prior to admission. Pt was out fishing all day in [place]. Pt states started soaking foot in [place]. At [facility], all labs and vital signs normal. Pt started on Zosyn and Daptomycin IV. ID consulted for evaluation and management. Allergies Allergy/AdvReac Type Severity Reaction Status Date / Time No Known Allergies Allergy Verified 10/15/23 16:24 Home Medications Medication Instructions Recorded Confirmed Type digoxin 250 mcg (0.25 mg) tablet 250 mcg PO DAILY 10/15/23 10/15/23 History furosemide 40 mg tablet 40 mg PO DAILY 10/15/23 10/15/23 History multivitamin 1 tab PO DAILY 10/15/23 10/15/23 History nebivolol 10 mg tablet 10 mg PO DAILY 10/15/23 10/15/23 History pantoprazole 40 mg tablet,delayed 40 mg PO DAILY 10/15/23 10/15/23 History release rivaroxaban 20 mg tablet (Xarelto) 20 mg PO DAILY 10/15/23 10/15/23 History Patient History Surgical History History of vascular surgery history popliteal bypass LLE History of hernia repair Family History Father Heart disease Stroke Social History Smoking Status: Former smoker Hx Alcohol Use: Yes Alcohol Intake Frequency: Monthly or Less Hx Substance Use: No Preferred Language: Brazilian Communication Ability: Effective Support Worker Required: No Beliefs That Will Affect Care: Sabianist Sabianist Beliefs: [employer] Current Living Situation: Significant Other Current Living Situation Comment: lives with significant other "Vanda" Feels Safe at Home: Yes Assistive Devices: CPAP Review of Systems all ROS negative and reviewed everything Results & Data Vital Signs (Past 12 Hours) Vital Signs Temp Pulse Resp BP BP Pulse Ox O2 Del Method 10/17/23 11:37 36.5 C 70 18 115/77 96 Room Air 10/17/23 08:17 36.4 C L 79 18 131/81 95 Room Air 10/17/23 07:50 Room Air 10/17/23 02:48 35.9 C L 77 16 116/79 95 BiPAP Laboratory Results 10/16/23 Unknown Gram Stain - Final Foot,Left Wound Culture - Preliminary Staphylococcus species 10/15/23 17:53 Aerobic Blood Culture - Preliminary Blood No growth in Aerobic bottle after 24 hours. Anaerobic Blood Culture - Preliminary No growth in Anaerobic bottle after 24 hours. 10/15/23 17:48 Aerobic Blood Culture - Preliminary Blood No growth in Aerobic bottle after 24 hours. Anaerobic Blood Culture - Preliminary No growth in Anaerobic bottle after 24 hours. 10/17/23 10/17/23 08:54 07:03 WBC 7.80 RBC 4.88 Hgb 14.3 Hct 45.1 MCV 92.4 MCH 29.3 MCHC 31.7 L RDW Std Deviation 54.5 H RDW Coeff of Magda 16.0 H Plt Count 169 MPV 9.3 L Sodium 140 Potassium 3.5 TNP Chloride 104 Carbon Dioxide 31 Anion Gap 5 BUN 19 Creatinine 1.88 H Est Cr Clr Drug Dosing 47.7 Est GFR ( Amer) 40.2 Est GFR (Non-Af Amer) 34.7 BUN/Creatinine Ratio 10.1 Glucose 101 H Calcium 8.4 L Magnesium 2.4 Triglycerides 77 Cholesterol 121 LDL Cholesterol, Calc 77 VLDL Cholesterol, Calc 15 HDL Cholesterol 29 Cholesterol/HDL Ratio 4.2 Diagnostic Findings Chest X-Ray 10/16/23 16:44 XR chest 1V portable HISTORY: 73 years-old Male Dyspnea acute shortness of breath COMPARISON: 10/15/2023 TECHNIQUE: AP view of the chest FINDINGS: Cardiac silhouette is enlarged. No pneumothorax or pleural effusion. Extensive bilateral reticular interstitial opacities congestion. Bones appear grossly intact IMPRESSION: 1. Cardiomegaly with pulmonary vascular congestion. 2. Reticular interstitial opacities redemonstrated suggestive of chronic interstitial lung disease. ACT 112: Negative or not required by law. The above report was generated using voice recognition software. It may contain grammatical, syntax or spelling errors. Electronically signed by: Ganesh Mariano M.D. 10/16/2023 5:33 PM Medications Administered Home Medications Medication Instructions Recorded Confirmed Last Taken digoxin 250 mcg (0.25 mg) tablet 250 mcg PO DAILY 10/15/23 10/15/23 10/15/23 furosemide 40 mg tablet 40 mg PO DAILY 10/15/23 10/15/23 10/15/23 multivitamin 1 tab PO DAILY 10/15/23 10/15/23 Unknown nebivolol 10 mg tablet 10 mg PO DAILY 10/15/23 10/15/23 10/15/23 pantoprazole 40 mg tablet,delayed 40 mg PO DAILY 10/15/23 10/15/23 10/15/23 release rivaroxaban 20 mg tablet (Xarelto) 20 mg PO DAILY 10/15/23 10/15/23 10/15/23 Active Medications Generic Name Dose Route Start Last Admin Trade Name Freq PRN Reason Stop Dose Admin Acetaminophen 650 mg 10/15/23 17:48 10/17/23 08:21 Acetaminophen 325 Mg Tab PO 11/14/23 17:47 650 mg Q4H PRN Administration Pain or Fever Collagenase 1 appln 10/16/23 17:30 10/17/23 08:21 Collagenase Oint 30 Gm Tube EXT 11/15/23 17:29 1 appln DAILY STEPHANIE Administration Protocol Digoxin 0.25 mg 10/16/23 16:00 10/16/23 16:34 Digoxin 0.25 Mg Tab PO 11/15/23 15:59 0.25 mg DAILY@1600 STEPHANIE Administration Furosemide 40 mg 10/17/23 09:00 10/17/23 08:21 Furosemide 40 Mg Tab PO 11/16/23 08:59 40 mg DAILY STEPHANIE Administration Daptomycin 375 mg/ Syringe 7.5 mls @ 3.75 mls/min 10/15/23 18:15 10/16/23 17:08 IV 10/22/23 18:14 3.75 mls/min Q24H STEPHANIE Administration Protocol Piperacillin Sod/Tazobactam 100 mls @ 25 mls/hr 10/16/23 02:00 10/17/23 09:09 Sod 4.5 gm/ Dextrose IV 10/23/23 01:59 25 mls/hr Q8H STEPHANIE Administration Protocol Metoprolol Tartrate 50 mg 10/16/23 09:00 10/17/23 08:21 Metoprolol Tartrate 50 Mg Tab PO 11/15/23 08:59 50 mg BID STEPHANIE Administration Multivitamins 1 tab 10/16/23 09:00 10/17/23 08:21 Multivitamin Tab PO 11/15/23 08:59 1 tab DAILY STEPHANIE Administration Pantoprazole Sodium 40 mg 10/16/23 09:00 10/17/23 08:21 Pantoprazole 40 Mg Tab PO 11/15/23 08:59 40 mg DAILY STEPHANIE Administration Rivaroxaban 15 mg 10/16/23 18:00 10/16/23 19:18 Rivaroxaban 15 Mg Tab PO 11/15/23 17:59 15 mg QDD STEPHANIE Administration
--- NOTE | 2023-10-17 15:26 | Podiatry Progress Note ---
Date of Service October 17, 2023 Assessment & Plan (1) Infection of great toe: (2) Peripheral arterial disease with history of revascularization: (3) Cellulitis of left leg: (4) Chronic ulcer of left foot with fat layer exposed: Plan patient was examined and evaluated. - Dressing was just changed by wound care with Santyl and a dry sterile dressing. - He should continue with this conservative wound care as long as it remains affective and the toe remained stable. - I still believe osteomyelitis is unlikely to the toe but this is based on clinical exam findings. The MRI is suggestive of bone infection, though the timing and severity of the ulcer contradict that. - He would benefit from this continued wound care and likely oral antibiotics upon discharge for 2 weeks for the cellulitis. - We will continue to keep a close eye on him on an outpatient basis once he is discharged to ensure that these infectious symptoms are not worsening. - Front of foot and ankle standpoint, he can be released home, assuming he is stable from a medical standpoint as well. Admission and Anticipated Discharge Date Admission Date: October 15, 2023 Subjective Patient seen at bedside. No new complaints. He is doing well currently on IV antibiotics. He does state that while this blister [place] the boat a [place] or so ago, he does believe that it is possible he was already sick when it developed. He states that he had fevers predating the blister formation. Otherwise, he has no change to his history. He is interested in getting home when possible. Review of Systems Constitutional: no fever, no chills and no fatigue Eyes: no problem reported Ear, Nose, Mouth, Throat: no problem reported Respiratory: no problem reported Cardiovascular: + edema; no problem reported Gastrointestinal: no nausea, no vomiting and no problem reported Musculoskeletal: no problem reported Integumentary: + skin ulcer, + wounds and + erythema Neurologic: + loss of sensation, + numbness and + pa resthesia; no generalized weakness Psychiatric: no problem reported Physical Exam Physical Exam: lower extremity focused exam: DP/PT pulses 0/4 bilaterally. CFT is brisk to the digits. There is serous fluid drainage to the tip of the left hallux with no purulence noted. Minimal ascending erythema is appreciated, likely improved since the orthopedic consult. The nail is largely intact though dystrophic in nature. Advanced trophic changes are appreciated to the bilateral lower extremities, consistent with his arterial insufficiency. No deep probing of the wound is noted. No pain on palpation or light debridement of the wound bed is appreciated. Constitutional: WD/WN, vitals as above + ill appearing and + obese Eyes: PERRL, conjunctivae normal, anicteric sclerae ENMT: external ear and nose normal, oropharynx normal Neck: trachea midline, no thyromegaly normal visual inspection Respiratory: normal respiratory effort; no respiratory distress Cardiovascular: Rate/Rhythm: regular rate and regular rhythm Chest (Breasts): Chest: normal inspection of chest Gastrointestinal (Abdomen): Inspection/Auscultation: abdomen normal to inspection Percussion/Palpation: + abdomen tender and abdomen soft Musculoskeletal: no cyanosis or clubbing, extremities motor strength 5/5 Head/Neck/Chest: normocephalic and head atraumatic Extremities: extremities normal to inspection Ankle: + skin erythema Skin: + lesion, + ulcer, + skin atrophy, + dry skin and + nails dystrophic Neurologic: awake; + abnormal touch/pain/proprioception, + abnormal sensation to monofilament and no focal motor deficits Psychiatric: A+Ox3, euthymic affect Results & Data Results & Data Vital Signs (Past 12 Hours) Vital Signs Temp Pulse Pulse Resp BP Pulse Ox O2 Del Method 10/17/23 12:58 66 10/17/23 11:37 36.5 C 70 18 115/77 96 Room Air 10/17/23 08:17 36.4 C L 79 18 131/81 95 Room Air 10/17/23 07:50 Room Air
--- NOTE | 2023-10-17 17:08 | Hospitalist Progress Note ---
Date of Service October 17, 2023 Assessment & Plan (1) Cellulitis of left leg: (2) PVD (peripheral vascular disease): Plan: Patient is 73 year old male with PMH atrial fibrillation on digoxin, anticoagulated on Xarelto, PVD s/p left popliteal bypass (approximately 40 years ago) presented to ER with c/o left leg redness x 4 days. Blister noted to left great toe last week after fishing in [place] Left leg cellulitis Left great toe infection S/P bedside debridement --Foot MRI:Bone marrow edema in the terminal tuft of the first distal phalanx. Linear T1 hypointense band opacity in this region. Findings raise the possibility of a nondisplaced fracture. Correlate for history of trauma. Alternatively, consider reactive marrow edema for this appearance.There is no compelling evidence of acute osteomyelitis. Diffuse subcutaneous edema and/or cellulitis. --Venous Doppler:No DVT within the left lower extremity. -- Blood culture negative to date -- wound culture growing Staphylococcus species -- Continue Zosyn, daptomycin>> daptomycin only Appreciate podiatry, ID, orthopedics input Will likely transition to linezolid on discharge to complete 2-week course Continue wound care Needs follow-up with podiatry on discharge Peripheral vascular disease H/O LLE vein bypasses x2 --Arterial Doppler:The distal left superficial femoral artery, [place] popliteal artery, peroneal artery, and proximal to mid posterior tibial arteries are occluded. There is also a bypass graft traversing the left popliteal artery which is also occluded. Vascular surgery consulted lipid panel--within normal limits On chronic anticoagulation with Xarelto (3) MINDY (acute kidney injury): Plan: CKD III Reviewed old records Creatinine at baseline Monitor renal function (4) Atrial fibrillation: Plan: Continue digoxin, nebivolol continue Xarelto (5) Hypokalemia: Plan: Replete electrolytes as needed Monitor DVT Px Xarelto Code Status Full Code Admission and Anticipated Discharge Date Admission Date: October 15, 2023 Subjective Patient is seen and examined at bedside No new complaints Shortness of breath much improved Still has some foot pain intermittently Reports chronic urinary urgency Denies any chest pain, dizziness, nausea, vomiting, abdominal pain Discussed with podiatry today Review of Systems Review of Systems: All systems reviewed & are unremarkable except as noted in Subjective Physical Exam Physical Exam: Physical Exam: Vitals signs as noted above General Appearance: Obese, no apparent distress Head: normocephalic, Atraumatic Eyes: normal inspection, EOMI Neck: supple, Trachea midline Respiratory/Chest: Decreased breath sounds, CTA, No accessory muscle use Cardiovascular: Irregularly irregular, No murmur Abdomen/GI:Soft, Non tender, Bowel sounds present Extremities/Musculoskeletal:normal inspection, + edema, chronic venous stasis changes, left great toe ulcer, left lower extremity erythema improving Neurologic/Psych:AAOX3, grossly no focal neurological deficits Skin: normal color, warm Results & Data Results & Data Vital Signs (Past 12 Hours) Vital Signs Temp Pulse Pulse Resp BP BP Pulse Ox 10/17/23 16:05 80 10/17/23 16:01 36.4 C L 67 18 134/80 93 10/17/23 12:58 66 10/17/23 11:37 36.5 C 70 18 115/77 96 10/17/23 08:17 36.4 C L 79 18 131/81 95 10/17/23 07:50 O2 Del Method 10/17/23 16:05 10/17/23 16:01 Room Air 10/17/23 12:58 10/17/23 11:37 Room Air 10/17/23 08:17 Room Air 10/17/23 07:50 Room Air Laboratory Results Short CBC 10/17/23 Range/Units 07:03 WBC 7.80 (4.8-10.8) K/ul Hgb 14.3 (14.0-18.0) g/dl Hct 45.1 (42.0-52.0) % Plt Count 169 (130-400) K/uL BMP 10/17/23 10/17/23 07:03 08:54 Sodium 140 Potassium TNP 3.5 Chloride 104 Carbon Dioxide 31 BUN 19 Creatinine 1.88 H Glucose 101 H Calcium 8.4 L
[2023-10-18 07:47] LABS: Hematocrit (blood only) 44.3 % (42.0-52.0); Hemoglobin 14.1 g/dl (14.0-18.0); Mean Corpuscular Hemoglobin 28.8 pg (25.0-34.0); Mean Corpuscular Hgb Conc 31.8 g/dL (32.0-36.0); Mean Corpuscular Volume 90.4 fL (80.0-100.0); Mean Platelet Volume 9.1 fL (9.4-12.4); Platelet Count 174 K/uL (130-400); RDW Coefficient of Variation 15.9 % (11.5-14.5); RDW Standard Deviation 52.8 fL (36.4-46.3)
[2023-10-18 08:12] LABS: BUN Creatinine Ratio 10.9 (10-20); Calcium 8.5 mg/dl (8.6-10.3); Est GFR (African American) 41.5 ml/min; Est GFR (Non-African American) 35.8 ml/min; Potassium 3.9 mmol/L (3.5-5.1)
[2023-10-18] MEDS: DAPTOmycin 375 MG in SYRINGE 0 ML IV SCH (11:57)
--- NOTE | 2023-10-18 12:42 | Hospitalist Progress Note ---
Date of Service October 18, 2023 Assessment & Plan (1) Cellulitis of left leg: (2) PVD (peripheral vascular disease): Plan: Patient is 73 year old male with PMH atrial fibrillation on digoxin, anticoagulated on Xarelto, PVD s/p left popliteal bypass (approximately 40 years ago) presented to ER with c/o left leg redness x 4 days. Blister noted to left great toe last week after fishing in [place] Left leg cellulitis Left great toe infection S/P bedside debridement --Foot MRI:Bone marrow edema in the terminal tuft of the first distal phalanx. Linear T1 hypointense band opacity in this region. Findings raise the possibility of a nondisplaced fracture. Correlate for history of trauma. Alternatively, consider reactive marrow edema for this appearance.There is no compelling evidence of acute osteomyelitis. Diffuse subcutaneous edema and/or cellulitis. --Venous Doppler:No DVT within the left lower extremity. -- Blood culture negative to date -- wound culture grew MSSA -- Continue Zosyn, daptomycin>> daptomycin only Appreciate podiatry, ID, orthopedics input Transition to linezolid on discharge to complete 2-week course as recommended by ID Continue wound care Needs follow-up with podiatry/wound clinic and vascular surgery on discharge Plan to discharge home today Peripheral vascular disease H/O LLE vein bypasses x2 --Arterial Doppler:The distal left superficial femoral artery, [place] popliteal artery, peroneal artery, and proximal to mid posterior tibial arteries are occluded. There is also a bypass graft traversing the left popliteal artery which is also occluded. Vascular surgery consulted lipid panel--within normal limits On chronic anticoagulation with Xarelto (3) MINDY (acute kidney injury): Plan: CKD III Reviewed old records Creatinine at baseline Monitor renal function (4) Atrial fibrillation: Plan: Continue digoxin, nebivolol continue Xarelto (5) Hypokalemia: Plan: Replete electrolytes as needed Monitor DVT Px Xarelto Code Status Full Code Admission and Anticipated Discharge Date Admission Date: October 15, 2023 Subjective Patient is seen and examined at bedside Minimal intermittent foot pain No recurrence of dyspnea Denies any chest pain, dizziness, nausea, vomiting, abdominal pain Plan to be discharged home today Review of Systems Review of Systems: All systems reviewed & are unremarkable except as noted in Subjective Physical Exam Physical Exam: Physical Exam: Vitals signs as noted above General Appearance: Obese, no apparent distress Head: normocephalic, Atraumatic Eyes: normal inspection, EOMI Neck: supple, Trachea midline Respiratory/Chest: Decreased breath sounds, CTA, No accessory muscle use Cardiovascular: Irregularly irregular, No murmur Abdomen/GI:Soft, Non tender, Bowel sounds present Extremities/Musculoskeletal:normal inspection, + edema, chronic venous stasis changes, left great toe ulcer, left lower extremity erythema improving Neurologic/Psych:AAOX3, grossly no focal neurological deficits Skin: normal color, warm Results & Data Results & Data Vital Signs (Past 12 Hours) Vital Signs Temp Pulse Pulse Pulse Resp BP BP 10/18/23 11:57 36.4 C L 72 18 114/71 10/18/23 11:24 36.5 C 74 84 19 125/79 115/77 10/18/23 11:15 10/18/23 11:14 95 H 10/18/23 09:22 36.5 C 84 19 125/79 10/18/23 03:26 36.6 C 74 20 116/72 Pulse Ox O2 Del Method 10/18/23 11:57 96 Room Air 10/18/23 11:24 97 10/18/23 11:15 Room Air 10/18/23 11:14 10/18/23 09:22 97 Room Air 10/18/23 03:26 95 CPAP Laboratory Results Short CBC 10/18/23 Range/Units 07:08 WBC 7.60 (4.8-10.8) K/ul Hgb 14.1 (14.0-18.0) g/dl Hct 44.3 (42.0-52.0) % Plt Count 174 (130-400) K/uL BMP 10/18/23 07:08 Sodium 140 Potassium 3.9 Chloride 106 Carbon Dioxide 30 BUN 20 Creatinine 1.83 H Glucose 98 Calcium 8.5 L
--- NOTE | 2023-10-18 12:51 | Discharge Summary ---
Date of Service October 18, 2023 Admission HPI Per Admitting Provider Patient is 73 year old male with PMH atrial fibrillation on digoxin, anticoagulated on Xarelto, PVD presented to ER with c/o left leg redness x 4 days. Patient states history popliteal bypass surgery to left leg approximately 40 years ago and has chronic discoloration of purple/brown coloration to bilateral lower legs. Patient reports recently diagnosed with neuropathy. Started with blister to left toe great toe plantar surface and medial surface 4 days ago. He was out fishing all day in [place]. He states started soaking foot in Epsom salts. He reports noting clear seeping discharge from left toe after walking past couple of days. 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 His Cardiology, dermatology and PCP are in [place] and reports just saw them in one month ago and was told labs "looked good". Patient states chills 4 days ago. Hasn't noticed fever. He reports wears compression socks regularly however he has noticed increased swelling to left lower leg and started with erythema to lower leg area. Denies history MRSA. Denies diaphoresis, N/V/D/C, CHAMORRO, dizziness, CP, SOB, orthopnea, palpitations, cough, sore throat, rhinorrhea, abdominal pain, increased paresthesias, weakness, extremity weakness, other rashes, urinary symptoms. Admission Exam Per Admitting Provider Constitutional: Alert oriented x 3; not in distress. Respiratory: normal respiratory effort, lungs clear to auscultation, no wheeze, rales, rhonchi. Normal insp/exp effort, no accessory muscle use Cardiovascular: RRR, no murmur, no edema Vessels: no JVD or carotid bruit Chest: normal inspection of chest Abdomen: normal bowel sounds, soft, nontender, no hepatosplenomegaly Musculoskeletal: Great toe on left foot has a skin breakage with minimal serous discharge. Redness tracking up to the leg below his knee. No effusion in the ankle or at knee. Dorsalis pedis palpable Neurologic: PERRL, EOMI, accommodation nl, no face palsy, no dysarthria CN's II- XI intact bilaterally and moves all extremities Psychiatric: A+Ox3, euthymic affect Principal Diagnosis Left leg cellulitis Left great toe infection Peripheral vascular disease Discharge Data Allergies Allergy/AdvReac Type Severity Reaction Status Date / Time No Known Allergies Allergy Verified 10/15/23 16:24 Consultations 10/15/23 15:08 ED Decision to Admit Stat 10/15/23 17:48 Consult Infectious Diseases Routine Consult Podiatry Routine 10/15/23 18:30 Consult Vascular Surgery Routine 10/16/23 00:39 Consult Orthopedic Surgery Routine Procedures Performed Laboratory Results WBC 7.60 K/ul (4.8-10.8) 10/18/23 07:08 RBC 4.90 M/uL (4.70-6.10) 10/18/23 07:08 Hgb 14.1 g/dl (14.0-18.0) 10/18/23 07:08 POC Hgb 7.1 g/dl (14.0-18.0) L 10/16/23 09:53 Hct 44.3 % (42.0-52.0) 10/18/23 07:08 POC Hct 21 % (42-52) L 10/16/23 09:53 MCV 90.4 fL (80.0-100.0) 10/18/23 07:08 MCH 28.8 pg (25.0-34.0) 10/18/23 07:08 MCHC 31.8 g/dL (32.0-36.0) L 10/18/23 07:08 RDW Std Deviation 52.8 fL (36.4-46.3) H 10/18/23 07:08 RDW Coeff of Magda 15.9 % (11.5-14.5) H 10/18/23 07:08 Plt Count 174 K/uL (130-400) 10/18/23 07:08 MPV 9.1 fL (9.4-12.4) L 10/18/23 07:08 Immature Gran % (Auto) 0.5 % 10/15/23 14:11 Neut % (Auto) 69.5 % 10/15/23 14:11 Lymph % (Auto) 13.2 % 10/15/23 14:11 [place] % (Auto) 13.3 % 10/15/23 14:11 Eos % (Auto) 2.9 % 10/15/23 14:11 Baso % (Auto) 0.6 % 10/15/23 14:11 Neut # (Auto) 6.17 K/uL (1.40-6.50) 10/15/23 14:11 Lymph # (Auto) 1.17 K/uL (1.20-3.40) L 10/15/23 14:11 [place] # (Auto) 1.18 K/uL (0.11-0.59) H 10/15/23 14:11 Eos # (Auto) 0.26 K/uL (0.00-0.50) 10/15/23 14:11 Baso # (Auto) 0.05 K/uL (0.00-0.20) 10/15/23 14:11 Immature Gran # (Auto) 0.04 K/uL (0.01-0.20) 10/15/23 14:11 ESR 28 mm/hr (0-20) H 10/16/23 06:17 POC Sodium 141 mmol/L (135-144) 10/16/23 09:53 Sodium 140 mmol/L (136-145) 10/18/23 07:08 POC Potassium 3.0 mmol/L (3.3-5.0) L 10/16/23 09:53 Potassium 3.9 mmol/L (3.5-5.1) 10/18/23 07:08 POC Chloride 100 mmol/L (101-112) L 10/16/23 09:53 Chloride 106 mmol/L (98-107) 10/18/23 07:08 Carbon Dioxide 30 mmol/L (21-32) 10/18/23 07:08 POC Total CO2 28 mmol/L (24-31) 10/16/23 09:53 Anion Gap 4 (3-11) 10/18/23 07:08 POC Anion Gap 17.0 mmol/L (16-25) 10/16/23 09:53 POC BUN 9 mg/dl (7-18) 10/16/23 09:53 BUN 20 mg/dl (6-23) 10/18/23 07:08 Creatinine 1.83 mg/dl (0.6-1.4) H 10/18/23 07:08 POC Creatinine 0.6 mg/dl (0.6-1.3) 10/16/23 09:53 Est Cr Clr Drug Dosing 49.0 ml/min 10/18/23 07:08 Est GFR ( Amer) 41.5 ml/min 10/18/23 07:08 Est GFR (Non-Af Amer) 35.8 ml/min 10/18/23 07:08 BUN/Creatinine Ratio 10.9 (10-20) 10/18/23 07:08 Glucose 98 mg/dl (70-99(Fasting)) 10/18/23 07:08 POC Glucose (other) 114 mg/dl (70-99) H 10/16/23 09:53 Calcium 8.5 mg/dl (8.6-10.3) L 10/18/23 07:08 POC Ioniz Calcium Kirstie 1.17 mmol/l (1.12-1.32) 10/16/23 09:53 Magnesium 2.4 mg/dl (1.7-2.4) 10/17/23 07:03 Total Bilirubin 1.0 mg/dl (0.2-1.0) 10/16/23 06:17 AST 17 U/L (13-39) 10/16/23 06:17 ALT 19 U/L (7-52) 10/16/23 06:17 Alkaline Phosphatase 104 U/L (34-104) 10/16/23 06:17 Total Creatine Kinase 54 U/L (30-223) 10/15/23 14:11 C-Reactive Protein 4.40 mg/dl (0-0.5) H 10/16/23 06:17 Total Protein 6.1 gm/dl (6.0-8.3) 10/16/23 06:17 Albumin 3.2 gm/dl (3.4-5.0) L 10/16/23 06:17 Globulin 2.9 gm/dl (2.5-4.0) 10/16/23 06:17 Albumin/Globulin Ratio 1.1 (0.9-2) 10/16/23 06:17 Triglycerides 77 mg/dl (0-150) 10/17/23 07:03 Cholesterol 121 mg/dl (0-200) 10/17/23 07:03 LDL Cholesterol, Calc 77 mg/dl 10/17/23 07:03 VLDL Cholesterol, Calc 15 mg/dl (0-30) 10/17/23 07:03 HDL Cholesterol 29 mg/dl 10/17/23 07:03 Cholesterol/HDL Ratio 4.2 (0-5) 10/17/23 07:03 Procalcitonin 0.13 ng/ml (0-0.5) 10/15/23 14:11 TSH 2.500 uIu/ml (0.300-4.500) 10/15/23 14:11 Digoxin 0.7 ng/ml (0.8-2.0) L 10/15/23 14:11 Impressions Venous Doppler Study 10/15/23 14:26 LEFT LOWER EXTREMITY VENOUS DOPPLER HISTORY: Acute pain and swelling of the left lower leg swelling, redness, travel COMPARISON STUDY: None. FINDINGS: There is normal compressibility, flow, and augmentation within the left lower extremity deep venous system. Left internal jugular lymph nodes measure up to 2.5 x 1.0 x 1.8 cm with thin cortices and central fatty ernie, likely benign. Subcutaneous edema. IMPRESSION: No DVT within the left lower extremity. ACT 112: Negative or not required by law. Electronically signed by: Ganesh Mariano M.D. 10/15/2023 3:44 PM Foot MRI 10/15/23 16:12 Exam(s): MRI LEFT FOOT Without Contrast EXAM: MR Left Lower Extremity Without Intravenous Contrast, Foot CLINICAL HISTORY: Reason for exam: R/O osteomyelitis. TECHNIQUE: Multiplanar magnetic resonance images of the left foot without intravenous contrast. COMPARISON: No relevant prior studies available. FINDINGS: There is no evidence of acute fracture or dislocation. There are mild, age-related polyarticular degenerative changes, most conspicuous at the first MTP joint. A bipartite medial sesamoid at the first MTP joint is incidentally noted. Plantar plates appear intact. There is trace intermetatarsal bursitis in the third intermetatarsal space. There are no significant joint effusions. Visualized tendons appear intact. Intrinsic muscles of the foot appear normal. There is marked subcutaneous edema and swelling about the ankle and along the dorsum of the foot. There is a partially imaged subchondral cyst at the lateral talar dome, likely owing to overlying chondral loss. There is STIR hyperintense marrow edema within the terminal tuft of the first distal phalanx. T1-weighted images demonstrate a linear band of hypointensity (series 10, image 15; series 7, image 10). There is no confluent T1 marrow signal hypointensity in this location. No compelling evidence of osteomyelitis is identified within the foot. IMPRESSION: 1. Bone marrow edema in the terminal tuft of the first distal phalanx. Linear T1 hypointense band opacity in this region. Findings raise the possibility of a nondisplaced fracture. Correlate for history of trauma. Alternatively, consider reactive marrow edema for this appearance. There is no compelling evidence of acute osteomyelitis. 2. Diffuse subcutaneous edema and/or cellulitis. Electronically signed by: Sydnie Pederson M.D. 10/16/23 00:23 AM Duplex Scan Lower Extremity Artery 10/15/23 16:13 US arterial duplex left lower extremity CLINICAL HISTORY: History of peripheral vascular disease. Left lower extremity pain. COMPARISON STUDY: None. FINDINGS: Normal velocities and biphasic to triphasic waveforms seen within the left common femoral and proximal superficial femoral arteries. Monophasic low velocity waveforms seen within the mid left superficial femoral artery. The distal left superficial femoral artery, [place] popliteal artery, peroneal artery, and proximal to mid posterior tibial arteries are occluded. Monophasic low velocity waveforms seen within the left anterior tibial artery, distal posterior tibial artery, and dorsalis pedis artery. There is a bypass graft traversing the popliteal artery which is also occluded. There is also a patent collateral vessel which feeds into the distal posterior tibial artery. IMPRESSION: 1. The distal left superficial femoral artery, [place] popliteal artery, peroneal artery, and proximal to mid posterior tibial arteries are occluded. 2. There is also a bypass graft traversing the left popliteal artery which is also occluded. ACT 112: Negative or not required by law. Electronically signed by: Navdeep Scott M.D. 10/15/2023 6:11 PM Chest X-Ray 10/16/23 16:44 XR chest 1V portable HISTORY: 73 years-old Male Dyspnea acute shortness of breath COMPARISON: 10/15/2023 TECHNIQUE: AP view of the chest FINDINGS: Cardiac silhouette is enlarged. No pneumothorax or pleural effusion. Extensive bilateral reticular interstitial opacities congestion. Bones appear grossly intact IMPRESSION: 1. Cardiomegaly with pulmonary vascular congestion. 2. Reticular interstitial opacities redemonstrated suggestive of chronic interstitial lung disease. ACT 112: Negative or not required by law. The above report was generated using voice recognition software. It may contain grammatical, syntax or spelling errors. Electronically signed by: Ganesh Mariano M.D. 10/16/2023 5:33 PM Ordered Studies 10/15/23 14:26 US venous doppler LE LT Stat 10/15/23 16:12 MR foot LT w/o con Routine 10/15/23 16:13 US arterial duplex LE LT Urgent Hospital Course (1) Cellulitis of left leg: (2) PVD (peripheral vascular disease): Patient is 73 year old male with PMH atrial fibrillation on digoxin, anticoagulated on Xarelto, PVD s/p left popliteal bypass (approximately 40 years ago) presented to ER with c/o left leg redness x 4 days. Blister noted to left great toe last week after fishing in [place] [place] Left leg cellulitis Left great toe infection S/P bedside debridement --Foot MRI:Bone marrow edema in the terminal tuft of the first distal phalanx. Linear T1 hypointense band opacity in this region. Findings raise the possibi lity of a nondisplaced fracture. Correlate for history of trauma. Alternatively, consider reactive marrow edema for this appearance.There is no compelling evidence of acute osteomyelitis. Diffuse subcutaneous edema and/or cellulitis. --Venous Doppler:No DVT within the left lower extremity. -- Blood culture negative to date -- wound culture grew MSSA -- Continue Zosyn, daptomycin>> daptomycin only Appreciate podiatry, ID, orthopedics input Transition to linezolid on discharge to complete 2-week course as recommended by ID Continue wound care Needs follow-up with podiatry/wound clinic and vascular surgery on discharge Plan to discharge home today Peripheral vascular disease H/O LLE vein bypasses x2 --Arterial Doppler:The distal left superficial femoral artery, [place] popliteal artery, peroneal artery, and proximal to mid posterior tibial arteries are occluded. There is also a bypass graft traversing the left popliteal artery which is also occluded. Vascular surgery consulted lipid panel--within normal limits On chronic anticoagulation with Xarelto (3) MINDY (acute kidney injury): CKD III Reviewed old records Creatinine at baseline Monitor renal function (4) Atrial fibrillation: Continue digoxin, nebivolol continue Xarelto (5) Hypokalemia: Replete electrolytes as needed Monitor DVT Px Xarelto Code Status Full Code Total Time Total Time Spent Total Time Spent (In Minutes): 54 minutes Discharge Plan Discharge Items Patient Disposition: Home - Self-Care Reason For Visit: CELLULITIS Discharge Diagnosis: Left leg cellulitis Left great toe infection Peripheral vascular disease Activity: Per Instructions section Exercise/Sports: Wait until after follow-up appointment Non-emergency contact: Primary Care Provider, Surgeon and Specialist Call non-emergency contact if: you have any medication questions, your symptoms worsen, your pain is concerning for you and you have a fever Follow-up/Referrals: PCP,NO [Primary Care Provider] - Diet: Heart Healthy Addtl Attending Provider Instructions: Follow-up with your primary care physician in 1 week Follow-up with wound clinic in 1 to 2 weeks as scheduled Follow-up with your vascular surgeon in 2 to 3 weeks as recommended Follow-up with your [facility] Dr. Boateng as needed --Complete the antibiotic course Zyvox as prescribed (Start taking from 10/19/2023) --Your final blood cultures are pending at the time of discharge. Follow-up with your physician for results. -- Continue wound dressing as recommended. Seek immediate medical attention if your symptoms reoccur or worsen Please take all medications as instructed on discharge list below. Please call if you have any questions or problems. You can reach a [facility] hospitalist on duty at [facility] 24 hours a day by calling [phone] Pending Studies at Discharge: Yes Studies:: Blood cultures Stand-Alone Forms: My [facility], Smoking Cessation Medications and DC Order Prescriptions: New linezolid [Zyvox] 600 mg tablet 600 mg PO BID 10 Days Qty: 20 0RF Rx Instructions: Start taking from 10/19/2023 Continued furosemide 40 mg tablet 40 mg PO DAILY digoxin 250 mcg (0.25 mg) tablet 250 mcg PO DAILY pantoprazole 40 mg tablet,delayed release (DR/EC) 40 mg PO DAILY nebivolol 10 mg tablet 10 mg PO DAILY Xarelto 20 mg tablet 20 mg PO DAILY multivitamin Tablet 1 tab PO DAILY Discharge Orders: Discharge Order (Routine); Ordered 10/18/23 Ordered By: Froylan Nicole/Other Patient Handouts: Nutrition for Wound Healing Admission Data Admit Date/Time: 10/15/23 15:46 Attending Provider: Froylan Palomares Admit Provider: Hemal Wiley Primary Care Provider: PCP,NO Other Providers: Hemal Wiley; Charli Boateng; Jason Fontana; Naomy Glover; Greg Jordan I.; Patrick Florez II; Emerita Ziegler; Jero Turner; Jorden Prescott; Olivia Mccormack; Yanick Delacruz; Percy Jordan
--- NOTE | 2023-10-20 07:53 | Coding Query ---
DEBRIDEMENT DOCUMENTATION To promote full compliance with coding requirements relating to patient care, physician participation is requested in all cases of transportation associate uncertainty. Please assist us with the question(s) below: Please place an X in the parenthesis (x). If other, please document the finding: Type of Debridement: (x ) Excisional Debridement- Cutting away necrotic, devitalized tissue or slough to the level of viable tissue using a sharp instrument (i.e. scalpel, scissors, etc.) ( ) Non Excisional Debridement- The removal of necrotic, devitalized tissue or slough by means of scraping, mechanical brushing, flushing, or washing (i.e. irrigation,whirlpool);minor removal of loose fragments. ( ) Other (please specify): Instrument Used: ( x) Scissors ( ) Scalpel (x ) Curette ( ) Other (please specify): Depth of Debridement: (x ) Skin ( ) Skin and Subcutaneous Tissue ( ) Skin, Subcutaneous Tissue and Muscle ( ) Skin, Subcutaneous Tissue, Muscle and Bone ( ) Other (please specify): Please Specify the Size of Debridement in cm2: Thank you Elba CARREON
== END 2023-10-18 13:55 | disposition home or self-care (01) | DRG 603 ==
LOC: ED 13:17 → EDINP 15:46 → SUATTDRO 15:46 → EDINP 17:49 → 2W 20:59